=== PATIENT | male | born 1990 | race African-American/Black ===

== ENCOUNTER 2023-04-05 13:30 | Emergency (ER) | payer MEDICAID ==
[~2023-04-05] VITALS: Ht 188 cm; Wt 86.0 kg
[2023-04-05 14:22] LABS: CLARITY URINE CLEAR (CLEAR); COLOR URINE YELLOW (YELLOW); KETONES URINE NEGATIVE (NEGATIVE); LEUKOCYTE ESTERASE URINE NEGATIVE (NEGATIVE); NITRITE URINE NEGATIVE (NEGATIVE); OCCULT BLOOD URINE NEGATIVE (NEGATIVE); PH URINE 6.5 (4.5-8.0); PROTEIN URINE NEGATIVE (NEGATIVE); SPECIFIC GRAVITY URINE 1.022 (1.005-1.030)
[2023-04-05] MEDS ORDERED: AZITHROMYCIN 500 MG TABLET PO SCH (15:00)
[2023-04-05] MEDS ORDERED: CEFTRIAXONE SODIUM 500 MG/VIAL IM ONE (15:00)
[2023-04-05 16:18] VITALS: BP 115/68
[2023-04-08 07:08] LABS: NEISSERIA GONORRHOEAE NAA Negative (Negative)
== END 2023-04-05 16:23 | disposition home or self-care (01) ==
LOC: ER 13:30
DX: A64 Unspecified sexually transmitted disease (principal); Z98.890 Other specified postprocedural states
CPT/HCPCS: 81003; 87491; 87591; 96372; 99283; J0696; Z7610

== ENCOUNTER 2024-08-14 13:28 | Emergency (ER) | payer MEDICAID, OTHER ==
[~2024-08-14] VITALS: Ht 188 cm; Wt 86.0 kg
[2024-08-14 13:34] VITALS: PULSE 74; RESP 19; O2SAT 99
[2024-08-14 13:47] VITALS: BP 113/60; TEMP 98.5; O2SAT 99
[2024-08-14] MEDS: FLUORESCEIN SODIUM 1MG/STRIP BOTHEYE NR (15:18)
[2024-08-14] MEDS: TETRACAINE 0.5% OPHTH DROPS 4ML BOTHEYE NR (15:18)
== END 2024-08-14 16:11 | disposition left against medical advice (07) ==
LOC: ER 13:28
DX: H57.11 Ocular pain, right eye (principal); Z53.21 Procedure and treatment not carried out due to patient leaving prior to being seen by health care provider